=== PATIENT | female | born 1995 | race Caucasian/White ===

== ENCOUNTER 2018-08-07 14:47 | Emergency (ER) | payer OTHER ==
[~2018-08-07] VITALS: Ht 175.3 cm; Wt 76.4 kg
[2018-08-07] MEDS ORDERED: ACETAMINOPHEN 500 MG TABLET PO ONE (15:30)
[2018-08-07 15:42] LABS: BASOPHILS # (AUTO) 0.11 x10^3/uL (0-0.1); BASOPHILS % (AUTO) 2 % (0-1); EOSINOPHILS # (AUTO) 0.09 x10^3/uL (0-0.4); EOSINOPHILS % (AUTO) 1 % (1-7); LYMPHOCYTES # (AUTO) 1.37 x10^3/uL (1-3.4); LYMPHOCYTES % (AUTO) 19 % (22-44); MD NO; MEAN CORPUSCULAR HEMOGLOBIN 29.9 pg (27.0-34.8); MEAN CORPUSCULAR HGB CONC 32.9 g/dL (32.4-35.8); MEAN CORPUSCULAR VOLUME 90.8 fL (80-100); MEAN PLATELET VOLUME 8.4 fL (7.4-10.4); MONOCYTES # (AUTO) 0.58 x10^3/uL (0.2-0.8); MONOCYTES % (AUTO) 8 % (2-9); NEUTROPHILS # (AUTO) 5.12 x10^3/uL (1.8-6.8); NEUTROPHILS % (AUTO) 71 % (42-75); PLATELET COUNT 242 x10^3/uL (130-400); RED BLOOD COUNT 4.45 x10^6/uL (3.82-5.3); RED CELL DISTRIBUTION WIDTH 12.5 % (9.6-15.2)
[2018-08-07 15:52] LABS: ALANINE AMINOTRANSFERASE 30 U/L (12-78); ALBUMIN 3.9 g/dL (3.4-5.0); ANION GAP 9 mmol/L (5-15); CALCIUM 8.5 mg/dL (8.5-10.1); CHLORIDE 108 mmol/L (98-107); CREATININE 0.63 mg/dL (0.55-1.02)
[2018-08-07 15:54] LABS: ALKALINE PHOSPHATASE 54 U/L (45-117); BILIRUBIN,TOTAL 0.3 mg/dL (0.2-1.0); TOTAL PROTEIN 6.9 g/dL (6.4-8.2)
[2018-08-07] MEDS ORDERED: ONDANSETRON ODT 4 MG ONE (16:21)
[2018-08-07] MEDS ORDERED: ACETAMINOPHEN 500 MG TABLET ONE (16:22)
--- NOTE | 2018-08-07 16:22 | NUR ---
PT WAS TOLD THAT SHE HAD A SEIZURE LAST NIGHT. SHE DOES NOT RECALL THIS HAPPENING. SHE HAD BEEN OUT WITH FRIEND AND HAD 3 DRINKS. PT SLEPT ALL DAY TODAY AND WOKE UP WITH A MESSER AND NAUSEA.
[2018-08-07 16:45] VITALS: BP 118/81
--- NOTE | 2018-08-07 16:45 | NUR ---
TASK RN: Patient up to restroom independently ambulating with steady gait, back to bed with call nixon within reach.
[2018-08-07 17:00] LABS: AMPHETAMINE SCREEN, URINE Positive (Negative); BARBITURATE SCREEN, URINE Negative (Negative); BENZODIAZEPINE SCREEN, URINE Negative (Negative); CANNABINOID SCREEN, URINE Negative (Negative); COCAINE SCREEN, URINE Positive (Negative); METHADONE SCREEN, URINE Negative (Negative); OPIATE SCREEN, URINE Negative (Negative)
[2018-08-07] MEDS ORDERED: ONDANSETRON ODT 4 MG PO ONE (17:00)
--- NOTE | 2018-08-07 17:33 | NUR ---
PT GIVEN DISCHARGE INSTRUCTIONS AFTER PROVIDER DISCUSSED TEST RESULTS. PT NO LONGER NAUSEATED, CONTINUES TO HAVE MESSER 3/10. FRIEND WITH PT. PT AMBULATED TO DISHCARGE DESK, STEADY GAIT.
== END 2018-08-07 17:36 | disposition home or self-care (01) ==
LOC: ED 16:57
DX: R56.9 Unspecified convulsions (principal); R51 Headache; F32.9 Major depressive disorder, single episode, unspecified
CPT/HCPCS: 36415; 70450; 80053; 80307; 85025; 93005; 99284; Q0162